=== PATIENT | male | born 1985 | race Caucasian/White ===

== ENCOUNTER 2016-11-13 10:49 | Emergency (ER) | payer OTHER ==
[~2016-11-13] VITALS: Ht 182.9 cm; Wt 70.0 kg
[~2016-11-13 10:49] MED LIST: ALBU18HF INHALATION; ALBU8.5H3 INH; BECL8.7A INH; BUS5 PO; FAMO-18 PO; GUAI118L94 PO; GUAI12009 PO; IBUP-1542 PO; LORA-441 PO; PRED50TA PO; SODI44SP11 NASAL; ZOF8 PO
[2016-11-13 10:54] VITALS: Ht 182.9 cm; Wt 70.0 kg
[2016-11-13] MEDS ORDERED: ALBUTEROL 0.083% (NEB) 2.5 MG/3 ML AMP NEB STA (11:09)
[2016-11-13] MEDS ORDERED: IPRATROPIUM (NEB) 0.5 MG/2.5 ML AMP NEB STA (11:09)
--- NOTE | 2016-11-13 11:48 | RADRPT ---
PROCEDURE: Chest x-ray CLINICAL INDICATION: Asthma exacerbation TECHNIQUE: Chest single view COMPARISON: 02/12/2016 FINDINGS: The heart is normal in size. The pulmonary vessels are normal in caliber. The lungs are clear. Th e costophrenic angles are sharp. The visualized bony thorax is unremarkable. IMPRESSION: No acute cardiopulmonary disease. No interval change RPTAT: HH .Jonathan Amador MD, MD Date Time Electronically viewed and signed by .Jonathan Amador MD, on 11/13/2016 11:47 .W/
--- NOTE | 2016-11-13 11:58 | ERD ---
ER Documentation Chief Complaint Date/Time DATE: 11/13/16 TIME: 11:56 Chief Complaint pt bib self with c/o cough, runny nose, cold symptoms x 3 days HPI This is a 31-year-old male who presents to the emergency department today complaining of cough, congestion and difficulty breathing for the past couple of days. Patient states this happened to him one time last year in the summer and he was diagnosed with pneumonia or bronchitis. States that he takes multiple medications for his psych disorders. Denies any fevers or chills. ROS All systems reviewed and are negative except as per history of present illness. Medications Home Meds Active Scripts Cetirizine Hcl* (Zyrtec*) 10 Mg Capsule, 10 MG PO DAILY, #14 TAB.CHEW Prov:LEANN RODRIGES PA-C 11/13/16 Fluticasone Propionate (Flonase Allergy Relief) 9.9 Ml [place].susp, 1 SPRAY NASAL BID, #1 BOTTLE TO EACH NOSTRIL Prov:LEANN RODRIGES PA-C 11/13/16 Azithromycin* (Zithromax*) 250 Mg Tablet, 250 MG PO .ZPACK DIRECTED, #6 TAB TAKE 500 MG (2 TABS) THE FIRST DAY THEN 250 MG (1 TAB) DAYS 2-5 Prov:LEANN RODRIGES PA-C 11/13/16 Prednisone* (Prednisone*) 20 Mg Tab, 40 MG PO DAILY for 4 Days, TAB Prov:LEANN RODRIGES PA-C 11/13/16 Albuterol Sulfate* (Ventolin HFA*) 18 Gm Hfa.aer.ad, 2 PUFF INHALATION Q4H, #1 INHALER Prov:LEANN RODRIGES PA-C 11/13/16 Prednisone* (Prednisone*) 50 Mg Tablet, 50 MG PO DAILY, #5 TAB Prov:VENANCIO MONTGOMERY NP 02/12/16 Guaifenesin-Codeine Phosphate* (Guaifenesin* with Codeine Liq) 120 Ml Liquid, 5 ML PO Q4H for COUGH, #60 ML Prov:VENANCIO MONTGOMERY NP 02/12/16 Beclomethasone Dip* (Qvar 40*) 7.3 Gm Inha, 2 PUFF INH BID, #1 INHALER Prov:VENANCIO MONTGOMERY FIRST OFFICER 02/12/16 Albuterol Sulfate* (Proair HFA*) 8.5 Gm Hfa.aer.ad, 2 PUFF INH Q4H Y for WHEEZING AND SOB, #1 INHALER Prov:VENANCIO MONTGOMERY FIRST OFFICER 02/12/16 Sodium Chloride (Saline Nasal [place]) 45 Ml [place], 2 SPRAYS NASAL Q2H Y for NASAL CONGESTION, #1 BOTTLE Prov:ANGELA BUCHANAN FIRST OFFICER 02/03/16 Guaifenesin* (Mucinex* ER) 1,200 Mg/Bottle Tbmp.12hr, 1200 MG PO BID, #30 TAB Prov:ANGELA BUCHANAN FIRST OFFICER 02/03/16 Albuterol Sulfate* (Ventolin HFA*) 18 Gm Hfa.aer.ad, 2 PUFF INHALATION Q4H, #1 INHALER Dispense with aerochamber Prov:ANGELA BUCHANAN NP 02/03/16 Buspirone Hcl* (Buspar*) 5 Mg Tab, 5 MG PO BID for 14 Days, TAB Prov:LUPE SHARP PA-C 02/27/15 Famotidine* (Pepcid*) 20 Mg Tablet, 20 MG PO BEDSIDE MEDICATION, #30 TAB Prov:LUPE SHARP PA-C 02/27/15 Lorazepam* (Ativan*) 0.5 Mg Tablet, 0.5 MG PO Q8, #10 Prov:LUPE SHARP-Nona 02/27/15 Ondansetron Hcl* (Zofran* ODT) 8 mg -ODT Tab.disper, 8 MG PO Q6 Y for NAUSEA AND /OR VOMITING, #10 TAB Prov:NANCY,RACHELLE Nona 02/22/15 Ibuprofen* (Motrin*) 600 Mg Tab, 600 MG PO Q6, #30 TAB Prov:NANCYRACHELLE C 02/22/15 Allergies Allergies: Coded Allergies: No Known Allergy (Unverified , 02/03/16) PMhx/Soc Medical and Surgical Hx: Unable to obtain History of Surgery: No Anesthesia Reaction: No Hx Neurological Disorder: No Hx Respiratory Disorders: Yes (Bronchitis) Hx Cardiac Disorders: No Hx Psychiatric Problems: Yes (bipolar, anxiety) Hx Miscellaneous Medical Probl: Yes Hx Alcohol Use: No Hx Substance Use: No Hx Tobacco Use: No Physical Exam Vitals Vital Signs Date Time Temp Pulse Resp B/P Pulse Ox O2 Delivery O2 Flow Rate FiO2 11/13/16 11:53 62 20 97 21 11/13/16 10:54 98.3 68 20 97 Physical Exam Const: Pleasant, no acute distress Head: Atraumatic Eyes: Normal Conjunctiva ENT: Ears TMs normal. Nose no drainage. Throat no erythema no exudate. Neck: Full range of motion..~ No meningismus. Resp: Diffuse wheezing bilaterally in all lung johnson. Cardio: Regular rate and rhythm, no murmurs Skin: No petechiae or rashes Neur: Awake and alert Psych: Normal Mood and Affect Results 24 hrs Current Medications Medications (Trade) Dose Ordered Sig/Elisa Route PRN Reason Start Time Stop Time Status Last Admin Dose Admin Albuterol (Proventil 0.083% (Neb)) 5 mg ONCE STAT NEB 11/13/16 11:09 11/13/16 11:10 DC 11/13/16 11:53 Ipratropium Craig (Atrovent 0.02% (Neb)) 0.5 mg ONCE STAT NEB 11/13/16 11:09 11/13/16 11:10 DC 11/13/16 11:53 Prednisone (Prednisone) 60 mg ONCE ONCE PO 11/13/16 12:00 11/13/16 12:01 DC 11/13/16 12:04 DIAGNOSTIC IMAGING REPORT Patient: SHELBY GARICA : 1985 Age: 31 Sex: M MR #: [id number] DOS: 11/13/16 1109 Ordering MD: LEANN RODRIGES PA-C Location: [facility] Room/Bed: PROCEDURE: Chest x-ray CLINICAL INDICATION: Asthma exacerbation TECHNIQUE: Chest single view COMPARISON: 02/12/2016 FINDINGS: The heart is normal in size. The pulmonary vessels are normal in caliber. The lungs are clear. The costophrenic angles are sharp. The visualized bony thorax is unremarkable. IMPRESSION: No acute cardiopulmonary disease. No interval change RPTAT: .Jonathan Amador MD, MD Date Time Electronically viewed and signed by .Jonathan Amador MD, MD on 11/13/2016 11:47 .W/ CC: LEANN RODRIGES PA-C Procedures/MDM This a 31-year-old male who presents to the emergency department today for cough , congestion and difficulty breathing for the past couple of days. On physical exam patient had diffuse wheezing bilaterally in all lung johnson. Patient has had a history of pneumonia bronchitis in the past. I did obtain a chest x-ray. Patient was also given a breathing treatment as well as prednisone here in the emergency. Patient still had wheezing on physical exam after one breathing treatment and I offered to give him another continuous breathing treatment however patient indicated that he would like to be discharged at this time. Patient is afebrile and his oxygen saturation was 97% and I feel that he is stable for discharge and outpatient management. Chest x-ray shows no acute cardiopulmonary disease. Lungs are clear. Low suspicion for pneumonia, PE, abscess, pleural effusion, pneumothorax. Given patient's wheezing I will treat the patient for possible bronchitis versus viral URI. I have low suspicion for strep pharyngitis, peritonsillar abscess, retropharyngeal abscess, otitis media, PNA, sinusitis, abscess, meningitis, sepsis, or other acute infectious bacterial process. Patient also be given a prescription for azithromycin and a short course of prednisone, albuterol, Zyrtec and Flonase. At this time the patient is stable for discharge and outpatient management. Patient should follow up with their PCP in the next 1-2 days. They may return to the emergency department sooner for any persistent or worsening of symptoms. Patient understood and agreed with the plan. Departure Diagnosis: Primary Impression: URI (upper respiratory infection) URI type: unspecified URI Qualified Code: J06.9 - Upper respiratory tract infection, unspecified type Condition: Fair LEANN RODRIGES PA-C Nov 13, 2016 11:58
[2016-11-13] MEDS ORDERED: predniSONE 20 MG TAB PO ONE (12:00)
[2016-11-13] MEDS ORDERED: PRED20TA PO (12:28)
[2016-11-13] MEDS ORDERED: ALBU18HF INHALATION (12:28)
[2016-11-13] MEDS ORDERED: AZIT250T94 PO (12:29)
[2016-11-13] MEDS ORDERED: CETI10CA PO (12:29)
[2016-11-13] MEDS ORDERED: FLUT9.9S NASAL (12:29)
[2016-11-14] MEDS ORDERED: HALOPERIDOL 5 MG INJ ONE (10:01)
[2016-11-14] MEDS ORDERED: LORAZEPAM 2 MG INJ ONE (10:02)
== END 2016-11-13 12:42 | disposition home or self-care (01) ==
LOC: FTE 10:49
DX: J06.9 Acute upper respiratory infection, unspecified (principal)
CPT/HCPCS: 71010; 94664; J7512; Z7502; Z7610; J1630; J2060

== ENCOUNTER 2016-12-19 10:30 | Emergency (ER) | payer OTHER ==
[~2016-12-19] VITALS: Ht 182.9 cm; Wt 69.0 kg
[~2016-12-19 10:30] MED LIST changes: +AZIT250T94 PO; +CETI10CA PO; +FLUT9.9S NASAL; +PRED20TA PO
[2016-12-19 10:35] VITALS: Ht 182.9 cm; Wt 69.0 kg
[2016-12-19] MEDS ORDERED: ALPR2TAB PO (11:09)
[2016-12-19] MEDS ORDERED: ARIP5TAB7 PO (11:10)
[2016-12-19] MEDS ORDERED: ESCI10TA PO (11:10)
[2016-12-19] MEDS ORDERED: KETOROLAC 30 MG INJ IV STA (11:11)
[2016-12-19] MEDS ORDERED: ONDANSETRON 4 MG INJ IV STA (11:11)
[2016-12-19] MEDS ORDERED: SOD CHLORIDE 0.9% 1,000 ML IV STA (11:11)
[2016-12-19 11:37] LABS: ADD SCAN DIFF NO
[2016-12-19 11:39] LABS: ABNORMAL IP MESSAGE 1; BASOPHILS % 0.2 % (0.0-2.0); HEMATOCRIT 41.9 % (42.0-52.0); HEMOGLOBIN 14.6 g/dl (14.0-18.0); LYMPHOCYTES # 0.6 10^3/ul (0.8-2.9); LYMPHOCYTES % 6.6 % (15.0-51.0); MEAN CORPUSCULAR HEMOGLOBIN 30.9 pg (29.0-33.0); MEAN CORPUSCULAR HGB CONC 34.8 g/dl (32.0-37.0); MEAN CORPUSCULAR VOLUME 88.8 fl (82.0-101.0); MEAN PLATELET VOLUME 9.8 fl (7.4-10.4); MONOCYTE # 0.2 10^3/ul (0.3-0.9); MONOCYTES % 2.1 % (0.0-11.0); NEUTROPHIL # 7.8 10^3/ul (1.6-7.5); NEUTROPHILS % 90.7 % (39.0-77.0); PLATELET COUNT 194 10^3/UL (140-415); RED BLOOD COUNT 4.72 10^6/ul (4.70-6.10); RED CELL DISTRIBUTION WIDTH 12.2 % (11.5-14.5); WHITE BLOOD COUNT 8.5 10^3/ul (4.8-10.8)
--- NOTE | 2016-12-19 11:43 | ERD ---
ER Documentation Chief Complaint Date/Time DATE: 12/19/16 TIME: 11:41 Chief Complaint abd pain with vomiting since last night HPI 31-year-old male with a history of anxiety presenting with abdominal pain that started late last night. He states the pain is aching, constant, nonradiating, associated with nonbloody and nonbilious vomiting. He denies any constipation or diarrhea. No associated fevers, chills, dysuria, hematuria. He cannot find a comfortable position. His pain is worse with movement and eating. he states he ate salmon last night prior to his symptoms starting and thinks his symptoms may be related to that. ROS All systems reviewed and are negative except as per history of present illness. Medications Home Meds Active Scripts Famotidine* (Pepcid*) 20 Mg Tablet, 20 MG PO BID for 7 Days, #14 TAB Prov:RG GARCIA MD 12/19/16 Metoclopramide* (Reglan*) 10 Mg Tablet, 10 MG PO Q6 Y for NAUSEA AND/OR VOMITING , #10 TAB Prov:RG GARCIA MD 12/19/16 Reported Medications Escitalopram Oxalate* (Lexapro*) 10 Mg Tablet, 10 MG PO DAILY, #30 TAB 12/19/16 Aripiprazole* (Abilify*) 5 Mg Tab, 5 MG PO DAILY, #30 TAB 12/19/16 Alprazolam* (Xanax*) 2 Mg Tablet, 2 MG PO QID Y for ANXIETY, TAB 12/19/16 Discontinued Scripts Cetirizine Hcl* (Zyrtec*) 10 Mg Capsule, 10 MG PO DAILY, #14 TAB.CHEW Prov:LEANN RODRIGES PA-C 11/13/16 Fluticasone Propionate (Flonase Allergy Relief) 9.9 Ml [place].susp, 1 SPRAY NASAL BID, #1 BOTTLE TO EACH NOSTRIL Prov:LEANN RODRIGES PA-C 11/13/16 Azithromycin* (Zithromax*) 250 Mg Tablet, 250 MG PO .ZPACK DIRECTED, #6 TAB TAKE 500 MG (2 TABS) THE FIRST DAY THEN 250 MG (1 TAB) DAYS 2-5 Prov:LEANN RODRIGES PA-C 11/13/16 Prednisone* (Prednisone*) 20 Mg Tab, 40 MG PO DAILY for 4 Days, TAB Prov:LEANN RODRIGESC 11/13/16 Albuterol Sulfate* (Ventolin HFA*) 18 Gm Hfa.aer.ad, 2 PUFF INHALATION Q4H, #1 INHALER Prov:LEANN RODRIGESC 11/13/16 Prednisone* (Prednisone*) 50 Mg Tablet, 50 MG PO DAILY, #5 TAB Prov:VENANCIO MONTGOMERY NP 02/12/16 Guaifenesin-Codeine Phosphate* (Guaifenesin* with Codeine Liq) 120 Ml Liquid, 5 ML PO Q4H for COUGH, #60 ML Prov:VENANCIO MONTGOMERY NP 02/12/16 Beclomethasone Dip* (Qvar 40*) 7.3 Gm Inha, 2 PUFF INH BID, #1 INHALER Prov:VENANCIO MONTGOMERY NP 02/12/16 Albuterol Sulfate* (Proair HFA*) 8.5 Gm Hfa.aer.ad, 2 PUFF INH Q4H Y for WHEEZING AND SOB, #1 INHALER Prov:VENANCIO MONTGOMERY NP 02/12/16 Sodium Chloride (Saline Nasal [place]) 45 Ml [place], 2 SPRAYS NASAL Q2H Y for NASAL CONGESTION, #1 BOTTLE Prov:ANGELA BUCHANAN NP 02/03/16 Guaifenesin* (Mucinex* ER) 1,200 Mg/Bottle Tbmp.12hr, 1200 MG PO BID, #30 TAB Prov:ANGELA BUCHANAN NP 02/03/16 Albuterol Sulfate* (Ventolin HFA*) 18 Gm Hfa.aer.ad, 2 PUFF INHALATION Q4H, #1 INHALER Dispense with aerochamber Prov:ANGELA BUCHANAN NP 02/03/16 Buspirone Hcl* (Buspar*) 5 Mg Tab, 5 MG PO BID for 14 Days, TAB Prov:LUPE SHARPC 02/27/15 Famotidine* (Pepcid*) 20 Mg Tablet, 20 MG PO BEDSIDE MEDICATION, #30 TAB Prov:LUPE SHARPC 02/27/15 Lorazepam* (Ativan*) 0.5 Mg Tablet, 0.5 MG PO Q8, #10 Prov:ARONLUPE Emanuel PA-C 02/27/15 Ondansetron Hcl* (Zofran* ODT) 8 mg -ODT Tab.disper, 8 MG PO Q6 Y for NAUSEA AND /OR VOMITING, #10 TAB Prov:NANCYRACHELLE Nona 02/22/15 Ibuprofen* (Motrin*) 600 Mg Tab, 600 MG PO Q6, #30 TAB Prov:RAHCELLE CRUZ Nona 02/22/15 Allergies Allergies: Coded Allergies: No Known Allergy (Unverified , 12/19/16) PMhx/Soc History of Surgery: No Anesthesia Reaction: No Hx Neurological Disorder: No Hx Respiratory Disorders: Yes (Bronchitis) Hx Cardiac Disorders: No Hx Psychiatric Problems: Yes (bipolar, anxiety) Hx Miscellaneous Medical Probl: Yes Hx Alcohol Use: No Hx Substance Use: No Hx Tobacco Use: No FmHx Family History: No diabetes Physical Exam Vitals Vital Signs Date Time Temp Pulse Resp B/P Pulse Ox O2 Delivery O2 Flow Rate FiO2 12/19/16 10:35 98.6 66 18 115/76 99 Physical Exam Const: Nontoxic, mild distress secondary to pain Head: Atraumatic Eyes: Normal Conjunctiva ENT: Normal External Ears, Nose and Mouth. Neck: Full range of motion. No meningismus. Resp: Clear to auscultation bilaterally Cardio: Regular rate and rhythm, no murmurs Abd: Soft, mild epigastric and right upper quadrant tenderness to palpation, non distended. Negative Cummings's sign. Hypoactive bowel sounds Skin: No petechiae or rashes Back: No midline or flank tenderness Ext: No cyanosis, or edema Neur: Awake and alert Psych: Normal Mood and Affect Result Diagram: 12/19/16 1115 12/19/16 1115 Results 24 hrs Laboratory Tests Test 12/19/16 11:15 12/19/16 12:15 White Blood Count 8.510^3/ul Red Blood Count 4.7210^6/ul Hemoglobin 14.6g/dl Hematocrit 41.9% Mean Corpuscular Volume 88.8fl Mean Corpuscular Hemoglobin 30.9pg Mean Corpuscular Hemoglobin Concent 34.8g/dl Red Cell Distribution Width 12.2% Platelet Count 14244^3/UL Mean Platelet Volume 9.8fl Neutrophils % 90.7% Lymphocytes % 6.6% Monocytes % 2.1% Eosinophils % 0.0% Basophils % 0.2% Nucleated Red Blood Cells % 0.0/100WBC Neutrophils # 7.810^3/ul Lymphocytes # 0.610^3/ul Monocytes # 0.210^3/ul Eosinophils # 0.010^3/ul Basophils # 0.010^3/ul Nucleated Red Blood Cells # 0.010^3/ul Sodium Level 143mmol/L Potassium Level 3.9mmol/L Chloride Level 101mmol/L Carbon Dioxide Level 28mmol/L Anion Gap 18 Blood Urea Nitrogen 21mg/dl Creatinine 0.81mg/dl Glucose Level 113mg/dl Calcium Level 9.7mg/dl Total Bilirubin 1.5mg/dl Direct Bilirubin 0.00mg/dl Indirect Bilirubin 1.5mg/dl Aspartate Amino Transf (AST/SGOT) 42IU/L Alanine Aminotransferase (ALT/SGPT) 56IU/L Alkaline Phosphatase 63IU/L Total Protein 7.7g/dl Albumin 5.0g/dl Globulin 2.70g/dl Albumin/Globulin Ratio 1.85 Lipase 41U/L Urine Color YELLOW Urine Clarity CLEAR Urine pH 7.5 Urine Specific [place] 1.015 Urine Ketones 40 Urine Nitrite NEGATIVE Urine Bilirubin NEGATIVE Urine Urobilinogen 1.0 E.U./dL Urine Leukocyte Esterase NEGATIVE Urine Microscopic RBC 0-2/HPF Urine Microscopic WBC 0-2/HPF Urine Epithelial Cells FEW Urine Bacteria FEW Urine Mucus FEW Urine Hemoglobin NEGATIVE Urine Glucose NEGATIVE% Urine Total Protein 1+ Current Medications Medications (Trade) Dose Ordered Sig/Elisa Route PRN Reason Start Time Stop Time Status Last Admin Dose Admin Sodium Chloride (NS) 1,000 ml @ 1,000 mls/hr Q1H STAT IV 12/19/16 11:11 12/19/16 12:10 DC 12/19/16 11:30 Ondansetron HCl (Zofran Inj) 4 mg ONCE STAT IV 12/19/16 11:11 12/19/16 11:13 DC 12/19/16 11:30 Ketorolac Tromethamine (Toradol) 30 mg ONCE STAT IV 12/19/16 11:11 12/19/16 11:13 DC 12/19/16 11:30 Famotidine (Pepcid) 40 mg ONCE ONCE PO 12/19/16 13:00 12/19/16 13:01 DC 12/19/16 13:11 Tramadol HCl (Ultram) 50 mg ONCE ONCE PO 12/19/16 14:00 12/19/16 14:01 DC 12/19/16 14:03 Miscellaneous Medication (Gi Cocktail (2)) 40 ml ONCE STAT PO 12/19/16 13:54 12/19/16 13:55 DC 12/19/16 14:03 Procedures/MDM Labs: CBC shows normal white blood cell count with elevated neutrophils, CMP unremarkable other than elevated indirect bilirubin, lipase normal Ultrasound right upper quadrant: FINDINGS: Visualized portions of the pancreatic head and proximal body are unremarkable. The liver is normal in size and contour without evidence of intrapelvic biliary dilatation. The liver is upper limits of normal in size. Several small gallstones are seen. There is a 2 mm nonshadowing echogenic focus in the gallbladder adherent to the wall that could represent a polyp. There is no evidence of gallbladder wall thickening or pericholecystic fluid. The technologist reports a negative sonographic Cummings's sign. The common bile duct measures 1.8 mm in maximal dimension. No free fluid is identified. The right kidney is normal in size measuring 10.8 cm in length. The renal cortex demonstrate slight increase in echogenicity suggesting medical renal disease. There is no evidence of obstructive uropathy.. IMPRESSION: 1. Several small gallstones are seen with a 2 mm nonshadowing echogenic focus in the gallbladder that could represent a polyp. The gallbladder is otherwise unremarkable without evidence of gallbladder wall thickening or pericholecystic fluid. 2. The common bile duct is normal measuring 1.8 mm in diameter. 3. Slight increase in echogenicity to the right renal cortex suggesting medical renal disease. There is no evidence of obstructive uropathy. RPTAT:AAJJ Physician Rafael Date Time Electronically viewed and signed by Leroy Bush Physician on 12/19/2016 13: 48 Patient is presenting with epigastric pain with nausea and vomiting. His vitals are stable and he is afebrile and nontoxic. Labs did not show any significant abnormalities. Ultrasound of the right upper quadrant showed gallstones without evidence of biliary obstruction or acute cholecystitis. I have a low suspicion for colitis, perforated viscus, pneumonia. Patient was treated for his nausea and pain with significant improvement, especially with the GI cocktail. Repeat abdominal exam was benign. He was tolerating fluids by mouth prior to discharge. He was discharged in a stable condition encouraged to return for any worsening symptoms. He was given a prescription for Reglan and Pepcid. Departure Diagnosis: Primary Impression: Upper abdominal pain Additional Impression: Nausea and vomiting Vomiting type: unspecified Vomiting Intractability: non-intractable Qualified Code: R11.2 - Non-intractable vomiting with nausea, unspecified vomiting type Condition: Stable RG GARCIA MD December 19, 2016 11:43
[2016-12-19 12:09] LABS: POTASSIUM 3.9 mmol/L (3.5-5.1)
[2016-12-19 12:11] LABS: ALBUMIN/GLOBULIN RATIO 1.85; BILIRUBIN,INDIRECT 1.5 mg/dl (0-1.1); BILIRUBIN,TOTAL 1.5 mg/dl (0.2-1.3); CREATININE 0.81 mg/dl (0.61-1.24); TOTAL PROTEIN 7.7 g/dl (6.1-8.1)
[2016-12-19 12:12] LABS: CALCIUM 9.7 mg/dl (8.4-10.2)
[2016-12-19] MEDS ORDERED: FAMOTIDINE 20 MG TAB PO ONE (13:00)
[2016-12-19 13:27] LABS: ADD UMIC YES; URINE BILIRUBIN (Dip) NEGATIVE (NEGATIVE); URINE BLOOD (Dip) NEGATIVE (NEGATIVE); URINE COLOR YELLOW (YELLOW); URINE GLUCOSE (Dip) NEGATIVE (NEGATIVE); URINE KETONES (Dip) 40 (NEGATIVE); URINE LEUKOCYTE ESTERASE (Dip) NEGATIVE (NEGATIVE); URINE NITRITE (Dip) NEGATIVE (NEGATIVE); URINE TOTAL PROTEIN (Dip) 1+ (NEGATIVE); URINE UROBILINOGEN (Dip) 1.0 E.U./dL (0.1-1.0)
[2016-12-19 13:35] LABS: BACTERIA,URINE FEW; MUCUS,URINE FEW; URINE RBCS 0-2 /HPF (0)
--- NOTE | 2016-12-19 13:48 | RADRPT ---
PROCEDURE: US Abdomen. CLINICAL INDICATION: Right upper quadrant pain, evaluate for obstruction TECHNIQUE: Multiple real-time images were acquired of the patient's abdomen and retroperitoneum ut ilizing a high resolution transducer. COMPARISON: None FINDINGS: Visualized portions of the pancreatic head and proximal body are unremarkable. The liver is normal in size and contour without evidence of intrapelvic biliary dilatation. The liver is upper limits of normal in size. Several small gallstones are seen. There is a 2 mm nonshadowing echogenic focus in the gallbladder adherent to the wall that could represent a polyp. There is no evidence of gallbladder wall thicken ing or pericholecystic fluid. The technologist reports a negative sonographic Cummings's sign. The common bile duct measures 1.8 mm in maximal dimension. No free fluid is identified. The right kidney is normal in size measuring 10.8 cm in length. The renal cortex demonstrate slight increase in echogenicity suggesting medical renal disease. There is no evidence of obstructive uro porter.. IMPRESSION: 1. Several small gallstones are seen with a 2 mm nonshadowing echogenic focus in the gallbladder th at could represent a polyp. The gallbladder is otherwise unremarkable without evidence of gallbladd er wall thickening or pericholecystic fluid. 2. The common bile duct is normal measuring 1.8 mm in diameter. 3. Slight increase in echogenicity to the right renal cortex suggesting medical renal disease. The re is no evidence of obstructive uropathy. RPTAT:AAJJ Physician Rafael Date Time Electronically viewed and signed by Physician Rafael on 12/19/2016 13:48 YOUSUF/
[2016-12-19] MEDS ORDERED: LIDOCAINE/MYLANTA 40 ML BTL PO STA (13:54)
[2016-12-19] MEDS ORDERED: traMADol 50 MG TAB PO ONE (14:00)
[2016-12-19] MEDS ORDERED: FAMO-18 PO (14:26)
[2016-12-19] MEDS ORDERED: METO10TA92 PO (14:26)
[2016-12-19 14:31] VITALS: BP 128/68; PULSE 77; RESP 18
== END 2016-12-19 14:32 | disposition home or self-care (01) ==
LOC: E/R 10:30
DX: R10.13 Epigastric pain (principal); R40.2252 Coma scale, best verbal response, oriented, at arrival to emergency department; R10.11 Right upper quadrant pain; R11.2 Nausea with vomiting, unspecified; R40.2142 Coma scale, eyes open, spontaneous, at arrival to emergency department; R40.2362 Coma scale, best motor response, obeys commands, at arrival to emergency department
CPT/HCPCS: 36415; 76705; 80053; 81001; 83690; 85025; 96374; 96375; J1885; J2405; J7030; Z7502; Z7610; 81003

== ENCOUNTER 2017-03-20 09:47 | Emergency (ER) | payer OTHER ==
[~2017-03-20] VITALS: Ht 182.9 cm; Wt 68.5 kg
[~2017-03-20 09:47] MED LIST changes: -ALBU18HF INHALATION; -ALBU8.5H3 INH; +ALPR2TAB PO; +ARIP5TAB7 PO; -AZIT250T94 PO; -BECL8.7A INH; -BUS5 PO; -CETI10CA PO; +ESCI10TA PO; -FAMO-18 PO; +FAMO-96 PO; -FLUT9.9S NASAL; -GUAI118L94 PO; -GUAI12009 PO; -IBUP-1542 PO; -LORA-441 PO; +METO10TA92 PO; -PRED20TA PO; -PRED50TA PO; -SODI44SP11 NASAL; -ZOF8 PO
[2017-03-20 09:49] VITALS: Ht 182.9 cm; Wt 68.5 kg
[2017-03-20] MEDS ORDERED: SODI126M NASAL (10:14)
[2017-03-20] MEDS ORDERED: ALBU18HF INHALATION (10:15)
[2017-03-20] MEDS ORDERED: CETI10CA PO (10:15)
--- NOTE | 2017-03-20 10:50 | ERD ---
ER Documentation Chief Complaint Date/Time DATE: 03/20/17 TIME: 10:29 Chief Complaint cold symptoms x 1 week HPI 31-year-old male complaining of cold-like symptoms for 1 week. Has a dry cough and slight runny nose. Cough is worse at night. Patient also complaining of chest tightness, relieved with albuterol inhaler. Denies fever or chills. ROS All systems reviewed and are negative except as per history of present illness. Medications Home Meds Active Scripts Cetirizine Hcl* (Zyrtec*) 10 Mg Capsule, 10 MG PO DAILY, #30 TAB.CHEW Prov:ANGELA BUCHANAN NP 03/20/17 Albuterol Sulfate* (Ventolin HFA*) 18 Gm Hfa.aer.ad, 2 PUFF INHALATION Q4H, #1 INHALER Prov:ANGELA BUCHANAN NP 03/20/17 Sodium Chloride (Saline Nasal [place]) 126 Ml [place], 2 SPRAY NASAL Q2H Y for NASAL CONGESTION, #1 BOTTLE Prov:ANGELA BUCHANAN NP 03/20/17 Famotidine* (Pepcid*) 20 Mg Tablet, 20 MG PO BID for 7 Days, #14 TAB Prov:RG GARCIA MD 12/19/16 Metoclopramide* (Reglan*) 10 Mg Tablet, 10 MG PO Q6 Y for NAUSEA AND/OR VOMITING , #10 TAB Prov:RG GARCIA MD 12/19/16 Reported Medications Escitalopram Oxalate* (Lexapro*) 10 Mg Tablet, 10 MG PO DAILY, #30 TAB 12/19/16 Aripiprazole* (Abilify*) 5 Mg Tab, 5 MG PO DAILY, #30 TAB 12/19/16 Alprazolam* (Xanax*) 2 Mg Tablet, 2 MG PO QID Y for ANXIETY, TAB 12/19/16 Allergies Allergies: Coded Allergies: No Known Allergy (Unverified , 03/20/17) PMhx/Soc Medical and Surgical Hx: pt denies Medical Hx, pt denies Surgical Hx History of Surgery: No Anesthesia Reaction: No Hx Neurological Disorder: No Hx Respiratory Disorders: Yes (Bronchitis) Hx Cardiac Disorders: No Hx Psychiatric Problems: Yes (bipolar, anxiety) Hx Miscellaneous Medical Probl: Yes Hx Alcohol Use: Yes Hx Substance Use: Yes Hx Tobacco Use: No Smoking Status: Never smoker Physical Exam Vitals Vital Signs Date Time Temp Pulse Resp B/P Pulse Ox O2 Delivery O2 Flow Rate FiO2 03/20/17 09:49 97.3 63 16 115/83 98 Physical Exam General: Well-developed, well-nourished, conscious and coherent, in no distress Skin: Warm and dry without rash, good texture and turgor Head: Normocephalic without evidence of trauma Eyes: Sclera and conjunctivae normal; pupils equal, round, and reactive to light; extraocular movements are intact Nose/Face: Erythematous and swollen with clear rhinorrhea Mouth/throat: Mucous membranes are moist. Posterior pharynx clear without erythema or exudates Neck: Supple without meningismus or adenopathy. Carotids are equal. Trachea midline. No bruits or JVD Chest: Normal AP diameter. Good expansion without retractions. Nontender. Lungs are clear to auscultate bilaterally with good tidal volume Heart: Regular rate and rhythm. No murmur, rub, or gallops heard Extremities: Full range of motion. Good strength bilaterally. No clubbing, cyanosis, or edema. Peripheral pulses are intact. Sensation intact Neuro: Alert and oriented 4, GCS 15. Cranial nerves grossly intact. Motor and sensory exams nonfocal. Moves all extremities. Speech clear. Gait normal Procedures/MDM Well-appearing 31-year-old male present ED with cold-like symptoms 1 week. Patient is afebrile, in no respiratory distress. Lungs are clear to auscultate. I doubt that patient has pneumonia or bronchitis. Likely patient's symptoms are result of viral upper respiratory infection. Patient appears well, stable for discharge and outpatient management. Medical decision making shared with patient and family. Education provided to patient and family. Patient and family expressed understanding of the plan. Medications on discharge: Saline nasal spray, cetirizine, albuterol HFA. Follow-up: Primary care provider in 2-3 days or return to ED if worse. Disclaimer: Inadvertent spelling and grammatical errors are likely due to EHR/ dictation software use and do not reflect on the overall quality of patient care. Also, please note that the electronic time recorded on this note does not necessarily reflect the actual time of the patient encounter. Departure Diagnosis: Primary Impression: Upper respiratory infection URI type: acute nasopharyngitis (common cold) Qualified Code: J00 - Acute nasopharyngitis Condition: Good Patient Instructions: Adult Self-Care for Colds Referrals: LEE STAFFORD (PCP) [facility] YOU HAVE RECEIVED A MEDICAL SCREENING EXAM AND THE RESULTS INDICATE THAT YOU DO NOT HAVE A CONDITION THAT REQUIRES URGENT TREATMENT IN THE EMERGENCY DEPARTMENT. FURTHER EVALUATION AND TREATMENT OF YOUR CONDITION CAN WAIT UNTIL YOU ARE SEEN IN YOUR DOCTORS OFFICE WITHIN THE NEXT 1-2 DAYS. IT IS YOUR RESPONSIBILITY TO MAKE AN APPOINTMENT FOR FOLOW-UP CARE. IF YOU HAVE A PRIMARY DOCTOR --you should call your primary doctor and schedule an appointment IF YOU DO NOT HAVE A PRIMARY DOCTOR YOU CAN CALL OUR PHYSICIAN REFERRAL HOTLINE AT IF YOU CAN NOT AFFORD TO SEE A PHYSICIAN YOU CAN CHOSE FROM THE FOLLOWING [facility] [address] [facility] [address] [facility] [address] [facility] [address] [facility] [address] [facility] [facility] [address] Additional Instructions: Call your primary care doctor TOMORROW for an appointment during the next 2-3 days.See the doctor sooner or return here if your condition worsens before your appointment time. ANGELA BUCHANAN NP Mar 20, 2017 10:43
== END 2017-03-20 10:23 | disposition home or self-care (01) ==
LOC: FTE 09:47
DX: J00 Acute nasopharyngitis [common cold] (principal); R40.2412 Glasgow coma scale score 13-15, at arrival to emergency department
CPT/HCPCS: 99283